=== PATIENT | female | born 1960 | race Caucasian/White ===

== ENCOUNTER → 2017-03-18 | Outpatient (CLI) | payer MEDICAID ==
--- NOTE | 2017-03-18 14:36 | XR ---
EXAMINATION TYPE: XR chest 2V DATE OF EXAM: 03/18/2017 HISTORY: C50.112 Breast CA. REFERENCE: Previous study dated 10/02/2016. FINDINGS: The lungs are clear. Pleural spaces are clear. Heart size is normal. There is hypertrophic spondylosis within the spine. IMPRESSION: NO ACTIVE INTRATHORACIC DISEASE.
== END | disposition home or self-care (01) ==
LOC: RADXRMAIN 13:34
PROVIDERS: ATTEND Internal Medicine Hematology & Oncology
DX: C50.112 Malignant neoplasm of central portion of left female breast (principal); B02.8 Zoster with other complications; M15.9 Polyosteoarthritis, unspecified; I10 Essential (primary) hypertension
CPT/HCPCS: 71020

== ENCOUNTER → 2017-05-22 | Outpatient (CLI) | payer MEDICAID ==
--- NOTE | 2017-05-23 07:18 | BD ---
EXAMINATION TYPE: MG DEXA axial skeleton. DATE OF EXAM: 05/22/2017 COMPARISON: 10.17.2014 DEXA bone scan CLINICAL HISTORY: C50.112 HX OF BREAST CANCER, Z78.0 POST MENOPAUSAL W/O HRT Height: 61 Weight: 177 FRAX RISK QUESTIONS: Alcohol (3 or more units per day): NO Family History (Parent hip fracture): NO Glucocorticoids (More than 3mos): NO (Ex: prednisone, prednisolone, methylprednisolone, dexamethasone, and hydrocortisone). History of Fracture in Adulthood: YES Secondary Osteoporosis: NO 1. Type 1 Diabetes: YES 2. Hyperthyroidism: NO 3. Menopause before 45: YES 4. Malnutrition: NO 5. 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 Bone mineral density as measured about the Lumbar spine is: ----- L1-L4(G/cm2): 1.464 T Score Values are as follows: ----- L1: 3.3 ----- L2: 2.6 ----- L3: 2.4 ----- L4: 1.3 ----- L1-L4: 2.4 Bone mineral density has: Increased 4.2% since study of: 10.17.2014 Bone mineral density about the R hip (g/cm2): 1.018 Bone mineral density about the L hip (g/cm2): 1.003 T Score values are as follows: -----R Neck: -0.7 -----L Neck: -0.8 -----R Total: 0.1 -----L Total: 0.0 Bone mineral density has: Decreased -0.1% since study of: 10.17.2014 FRAX%'S: THERE IS A 10.5% CHANCE OF A MAJOR OSTEOPOROTIC FX AND A 0.5% CHANCE OF HIP FX... PROBAB ILITY IN 10 YRS TIME IMPRESSION: Normal (Values between +1 and -1 indicate normal bone mass). Consider repeating this study in 5 year s or sooner if there is some new clinical indication FOR BOTH OF HER HIPS AND HER LUMBAR SPINE. NOTE: T-SCORE=SD OF THE YOUNG ADULT MEAN.
== END | disposition home or self-care (01) ==
LOC: RADBDWWP 16:17
PROVIDERS: ATTEND Internal Medicine Hematology & Oncology
DX: C50.112 Malignant neoplasm of central portion of left female breast (principal); N95.1 Menopausal and female climacteric states; Z78.0 Asymptomatic menopausal state
CPT/HCPCS: 77080

== ENCOUNTER 2017-06-12 01:47 | Emergency (ER) | payer MEDICAID ==
[2017-06-12 02:03] VITALS: RESP 16
[2017-06-12] MEDS ORDERED: SODIUM CHLORIDE 0.9% 500 ML IV STA (02:14)
[2017-06-12] MEDS ORDERED: KETOROLAC 60 MG/2 ML VIAL IVP STA (02:15)
[2017-06-12] MEDS ORDERED: ACETAMINOPHEN TAB 500 MG TAB PO STA (02:17)
--- NOTE | 2017-06-12 02:17 | ED ---
General Adult HPI - General Chief complaint: Abdominal Pain Stated complaint: sharp left side pain Time Seen by Provider: 06/12/17 02:00 Source: patient, RN notes reviewed Mode of arrival: ambulatory Limitations: no limitations - History of Present Illness Initial comments: This is a 57-year-old female presents emergency Department complaining about sudden onset of left CVA tenderness. Patient states she also has had a difficult time urinating since then. Patient states there is a little bit of urgency. Patient denies any dysuria. Patient denies any fever chills. Patient states tapping her back in the kidney area hurts significantly. Patient denies any abdominal pain patient denies any nausea or vomiting. Patient denies any chest pain palpitations or difficulty bleeding. Patient denies any vaginal bleeding or discharge. Patient denies any recent injury or trauma. Patient denies a history of kidney stones - Related Data Home Medications Medication Instructions Recorded Confirmed Letrozole [Femara] 2.5 mg PO DAILY 03/03/14 12/19/15 Previous Rx's Medication Instructions Recorded Hydrocodone/Acetaminophen [Pinole 1 each PO Q4HR PRN #20 tab 06/12/17 5-325] Ketorolac [Toradol] 10 mg PO Q6HR #15 tab 06/12/17 Tamsulosin HCl [Flomax] 0.4 mg PO DAILY #7 cap 06/12/17 Allergies Allergy/AdvReac Type Severity Reaction Status Date / Time adhesive tape Allergy DERMATITIS; Verified 12/19/15 07:25 PAPER TAPE OK Penicillins AdvReac Unknown Verified 12/19/15 07:25 Review of Systems ROS Statement: Those systems with pertinent positive or pertinent negative responses have been documented in the HPI. ROS Other: All systems not noted in ROS Statement are negative. Past Medical History Past Medical History: Cancer, Diabetes Mellitus, GERD/Reflux Additional Past Medical History / Comment(s): LMP 2006. Breast Cancer 2006. LAP BAND. OCC GERD. DIET-CONTROLLED DM. History of Any Multi-Drug Resistant Organisms: None Reported Past Surgical History: Breast Surgery, Orthopedic Surgery Additional Past Surgical History / Comment(s): Left Mastectomy W/ RECONSTRUCTION. Right Breast REDUCTION W/ Implant, Lap band 2001. Abdominoplasty. [facility] Past Anesthesia/Blood Transfusion Reactions: Postoperative Nausea & Vomiting ( PONV) Additional Past Anesthesia/Blood Transfusion Reaction / Comment(s): SEVERE PONV. Past Psychological History: No Psychological Hx Reported Smoking Status: Former smoker - Past Family History Mother Sister(s) Family Medical History: Cancer Additional Family Medical History / Comment(s): MOTHER, SISTER - PRE-CA BREAST. SISTER - SKIN CA. Father Family Medical History: Cancer General Exam - General Exam Comments Initial Comments: GENERAL: Patient is well-developed and well-nourished. Patient is nontoxic and well- hydrated and is in moderate distress. ENT: Neck is soft and supple. No significant lymphadenopathy is noted. Oropharynx is clear. Moist mucous membranes. Neck has full range of motion without eliciting any pain. EYES: The sclera were anicteric and conjunctiva were pink and moist. Extraocular movements were intact and pupils were equal round and reactive to light. Eyelids were unremarkable. PULMONARY: Unlabored respirations. Good breath sounds bilaterally. No audible rales rhonchi or wheezing was noted. CARDIOVASCULAR: There is a regular rate and rhythm without any murmurs gallops or rubs. ABDOMEN: Soft and nontender with normal bowel sounds. No palpable organomegaly was noted. There is no palpable pulsatile mass. SKIN: Skin is clear with no lesions or rashes and otherwise unremarkable. NEUROLOGIC: Patient is alert and oriented x3. Cranial nerves II through XII are grossly intact. Motor and sensory are also intact. Normal speech, volume and content. Symmetrical smile. MUSCULOSKELETAL: Normal extremities with adequate strength and full range of motion. Patient has significant left CVA tenderness LYMPHATICS: No significant lymphadenopathy is noted PSYCHIATRIC: Normal psychiatric evaluation. Normal interpersonal interactions appears functionally intact in deals appropriately with others. No signs of depression. No signs of anxiety. Limitations: no limitations Course Vital Signs 06/12/17 02:00 Temperature 100.2 F H Pulse Rate 73 Respiratory 16 Rate Blood Pressure 134/79 O2 Sat by Pulse 100 Oximetry Medical Decision Making - Medical Decision Making Computed tomography scan shows a kidney stone in the left ureter at the UVJ junction. Patient has some hydroureter little bit of hydronephrosis. - Lab Data Result diagrams: 06/12/17 03:00 06/12/17 03:00 Lab Results 06/12/17 06/12/17 06/12/17 Range/Units 03:00 03:00 03:00 WBC 13.8 H (3.8-10.6) k/uL RBC 4.64 (3.80-5.40) m/uL Hgb 13.9 (11.4-16.0) gm/dL Hct 40.3 (34.0-46.0) % MCV 86.9 (80.0-100.0) fL MCH 29.9 (25.0-35.0) pg MCHC 34.4 (31.0-37.0) g/dL RDW 13.1 (11.5-15.5) % Plt Count 280 (150-450) k/uL Neutrophils % 87 % Lymphocytes % 9 % Monocytes % 3 % Eosinophils % 0 % Basophils % 0 % Neutrophils # 12.0 H (1.3-7.7) k/uL Lymphocytes # 1.2 (1.0-4.8) k/uL Monocytes # 0.5 (0-1.0) k/uL Eosinophils # 0.0 (0-0.7) k/uL Basophils # 0.0 (0-0.2) k/uL Sodium 137 (137-145) mmol/L Potassium 4.6 (3.5-5.1) mmol/L Chloride 109 H (98-107) mmol/L Carbon Dioxide 17 L (22-30) mmol/L Anion Gap 11 mmol/L BUN 17 (7-17) mg/dL Creatinine 0.90 (0.52-1.04) mg/dL Est GFR (MDRD) Af Amer >60 (>60 ml/min/1.73 sqM) Est GFR (MDRD) Non-Af >60 (>60 ml/min/1.73 sqM) Glucose 121 H (74-99) mg/dL Calcium 9.5 (8.4-10.2) mg/dL Total Bilirubin 0.5 (0.2-1.3) mg/dL AST 26 (14-36) U/L ALT 23 (9-52) U/L Alkaline Phosphatase 84 (38-126) U/L Total Protein 6.9 (6.3-8.2) g/dL Albumin 4.2 (3.5-5.0) g/dL Amylase 53 (30-110) U/L Lipase 85 (23-300) U/L Urine Color Yellow Urine Appearance Clear (Clear) Urine pH 6.0 (5.0-8.0) Ur Specific [place] 1.026 (1.001-1.035) Urine Protein Trace H (Negative) Urine Glucose (UA) Negative (Negative) Urine Ketones Negative (Negative) Urine Blood Moderate H (Negative) Urine Nitrite Negative (Negative) Urine Bilirubin Negative (Negative) Urine Urobilinogen 2.0 (<2.0) mg/dL Ur Leukocyte Esterase Negative (Negative) Urine RBC 114 H (0-5) /hpf Urine WBC 1 (0-5) /hpf Ur Squamous Epith Cells <1 (0-4) /hpf Hyaline Casts 1 (0-2) /lpf Urine Mucus Rare H (None) /hpf Disposition Clinical Impression: Kidney stone on left side Disposition: HOME SELF-CARE Instructions: Kidney Stones (ED) Prescriptions: Hydrocodone/Acetaminophen [Pinole 5-325] 1 each PO Q4HR PRN #20 tab PRN Reason: Pain Ketorolac [Toradol] 10 mg PO Q6HR #15 tab Tamsulosin HCl [Flomax] 0.4 mg PO DAILY #7 cap Referrals: Jimmie Serra MD [Primary Care Provider] - 1-2 days Time of Disposition: 03:45
[2017-06-12 03:12] LABS: Basophils % (A) 0 %; CH 29.4; Eosinophils % (A) 0 %; HCT 40.3 % (34.0-46.0); HDW 2.63; HGB 13.9 gm/dL (11.4-16.0); Luc # (Auto) 0.11; Luc % (Auto) 1; Lymphocytes # (A) 1.2 k/uL (1.0-4.8); Lymphocytes % (A) 9 %; MCH 29.9 pg (25.0-35.0); MCHC 34.4 g/dL (31.0-37.0); MCV 86.9 fL (80.0-100.0); Mean Platelet Volume 7.1; Monocytes # (A) 0.5 k/uL (0-1.0); Monocytes % (A) 3 %; Neutrophils % (A) 87 %; RBC 4.64 m/uL (3.80-5.40); RDW 13.1 % (11.5-15.5); WBC 13.8 k/uL (3.8-10.6); WBC (Perox) 13.69
[2017-06-12 03:14] LABS: Appearance,Urine Clear (Clear); Bilirubin,Urine Negative (Negative); Glucose,Urine (UA) Negative (Negative); Ketones,Urine Negative (Negative); Leukocyte Esterase,Urine Negative (Negative); Mucus,Urine Rare /hpf; Nitrite,Urine Negative (Negative); Particle Count 2931; Protein,Urine Trace (Negative); RBC,Urine 114 /hpf (0-5); Specific Gravity,Urine 1.026 (1.001-1.035); Squamous Epithelial Cell,Urine <1 /hpf (0-4); UA Billing (MACRO vs. MICRO) MICRO; WBC,Urine 1 /hpf (0-5)
[2017-06-12 03:24] LABS: ALT 23 U/L (9-52); AST 26 U/L (14-36); Alkaline Phosphatase 84 U/L (38-126); Amylase 53 U/L (30-110); Anion Gap 11 mmol/L; Blood Urea Nitrogen 17 mg/dL (7-17); Calcium 9.5 mg/dL (8.4-10.2); Carbon Dioxide 17 mmol/L (22-30); Chloride 109 mmol/L (98-107); Glucose 121 mg/dL (74-99); Non-African American GFR(MDRD) >60 (>60 ml/min/1.73 sqM); Potassium 4.6 mmol/L (3.5-5.1); Sodium 137 mmol/L (137-145); Total Bilirubin 0.5 mg/dL (0.2-1.3); Total Protein 6.9 g/dL (6.3-8.2)
[2017-06-12] MEDS ORDERED: HYDROmorphone 1 MG/ML 1 ML SYRINGE IVP STA (04:05)
[2017-06-12] MEDS ORDERED: ONDANSETRON 4 MG/2 ML VIAL IVP STA (04:06)
--- NOTE | 2017-06-12 04:38 | CT ---
EXAM: CT Abdomen and Pelvis Without Intravenous Contrast CLINICAL HISTORY: Reason: Pain TECHNIQUE: Axial computed tomography images of the abdomen and pelvis without intravenous contrast. CTDI is 9.20 mGy and DLP is 427.90 mGy-cm. This CT exam was performed using one or more of the following dose reduction techniques: automated exposure control, adjustment of the mA and/or kV according to patient size, and/or use of iterative reconstruction technique. COMPARISON: CT abdomen-pelvis 03/03/2014 FINDINGS: Lower thorax: Lung bases are clear. Partially imaged left breast implant. Postoperative changes of gastric lap band identified about region of gastric cardia. There is moderate distal esophageal distention with air-fluid level in the distal esophagus which may reflect stasis and delayed clearing. ABDOMEN: Liver: Mild hepatomegaly. Liver is otherwise unremarkable. Gallbladder and bile ducts: Unremarkable. No calcified stones. Pancreas: Pancreas is unremarkable No ductal dilation. Spleen: Spleen is unremarkable Adrenals: No adrenal masses Kidneys and ureters: Mild left perinephric stranding with mild left hydronephrosis and hydroureter. Findings suggesting small approximately 3 mm distal left ureteral calculus identified just above level of the left ureterovesical junction. No evidence of right renal calculi or hydronephrosis. Stomach and bowel: No evidence of bowel obstruction or pneumoperitoneum. Normal-appearing appendix identified. No evidence of appendicitis. Colonic diverticulosis. Minimal pericolonic stranding identified about region of splenic flexure and distal descending colon likely related to chronic postinflammatory changes as these areas were involved with diverticulitis on prior study of 03/03/2014. No definite evidence of acute diverticulitis although colonic evaluation is somewhat limited due to incomplete colonic distention. Appendix: See above. PELVIS: Bladder: Urinary bladder is nondistended but otherwise unremarkable. No bladder calculi identified. Reproductive: Unremarkable as visualized. ABDOMEN and PELVIS: Intraperitoneal space: No abnormal fluid collections or free fluid. Bones/joints: Degenerative changes involving the lower thoracic and lumbar spine. Soft tissues: Unremarkable. Vasculature: No abdominal aortic aneurysm. Lymph nodes: No enlarged lymph nodes. IMPRESSION: Mild left perinephric stranding with mild left hydronephrosis and hydroureter with findings suggesting small approximately 3 mm distal left ureteral calculus just above level of the left ureterovesical junction. Colonic diverticulosis. No definite evidence of acute diverticulitis. Postsurgical changes of gastric lap band with moderate distention of distal esophagus as discussed in body of report.
[2017-06-12 04:52] VITALS: BP 108/70; PULSE 68; TEMP 98.2
== END 2017-06-12 04:49 | disposition home or self-care (01) ==
LOC: EC 01:47
DX: N20.0 Calculus of kidney (principal); Z85.3 Personal history of malignant neoplasm of breast; Z87.891 Personal history of nicotine dependence; Z79.899 Other long term (current) drug therapy; Z88.0 Allergy status to penicillin; Z91.09 Other allergy status, other than to drugs and biological substances
CPT/HCPCS: 36415; 80053; 82150; 83690; 85025; 81001; 74176; 99284; 96374; 96375 ×2; 96361 ×2; J2405; J1885; J1170

== ENCOUNTER 2017-11-21 23:31 | Emergency (ER) | payer MEDICAID ==
[2017-11-21] MEDS ORDERED: ACETAMINOPHEN TAB 500 MG TAB PO STA (23:48)
[2017-11-21] MEDS ORDERED: IBUPROFEN 600 MG TAB PO STA (23:48)
[2017-11-22] MEDS ORDERED: IPRATROPIUM-ALBUTEROL 3 ML NEB INHALATION STA (00:11)
[2017-11-22] MEDS ORDERED: SODIUM CHLORIDE 0.9% 1,000 ML IV STA ×2 (00:11)
[2017-11-22] MEDS ORDERED: methylPREDNISolone SOD SUCCI 125 MG/2 ML VIAL IV STA (00:11)
[2017-11-22] MEDS ORDERED: PROMETHAZ-COD 6.25-10 MG/5 ML 5 ML CUP PO STA (00:14)
--- NOTE | 2017-11-22 00:31 | ED ---
URI HPI - General Chief Complaint: Upper Respiratory Infection Stated Complaint: Cough Time Seen by Provider: 11/21/17 23:41 Source: patient, RN notes reviewed, old records reviewed Mode of arrival: ambulatory Limitations: no limitations - History of Present Illness Initial Comments: This patient is a 57 year old female with one week of cough, congestion, and low grade fever. Patient reports she called her PCP and was started on steriod dose pack today. She states she was coughing too hard that she vomitied and couldnt catch her breath, so she came to the ED. She states that she was recently on Biaxin for sinus infection. Denies any abdominal pain, chest pain, headache, changes in urination and bowlel habits. She denies any numbness or tingling, headache, sore throat or sinus pressure. She is a non smoker - Related Data Home Medications Medication Instructions Recorded Confirmed Acetaminophen [Tylenol Extra 500 mg PO BID PRN 11/21/17 11/21/17 Strength] Albuterol Inhaler [Ventolin Hfa 2 puff INHALATION RT-Q6H PRN 11/21/17 11/21/17 Inhaler] Promethazine/Dextromethorphan 5 ml PO BID PRN 11/21/17 11/21/17 [Promethazine-Dm Syrup] methylPREDNISolone Dose Pack See Taper PO DIRECTED 11/21/17 11/21/17 [Medrol Dose Pack] Previous Rx's Medication Instructions Recorded Albuterol Inhaler [Ventolin Hfa 1 - 2 puff INHALATION Q6HR PRN #1 11/22/17 Inhaler] inhaler Levofloxacin [Levaquin] 750 mg PO DAILY #5 tab 11/22/17 Ondansetron Odt [Zofran Odt] 4 mg PO Q12HR PRN #12 tab 11/22/17 Promethaz-Cod 6.25-10 mg/5 ml 5 ml PO Q4HR PRN #120 ml 11/22/17 [Phenergan with Codeine] Allergies Allergy/AdvReac Type Severity Reaction Status Date / Time adhesive tape Allergy DERMATITIS; Verified 11/21/17 23:45 PAPER TAPE OK Penicillins Allergy Anaphylaxis Verified 11/21/17 23:45 Review of Systems ROS Statement: Those systems with pertinent positive or pertinent negative responses have been documented in the HPI. ROS Other: All systems not noted in ROS Statement are negative. Past Medical History Past Medical History: Cancer, Diabetes Mellitus, GERD/Reflux Additional Past Medical History / Comment(s): LMP 2006. Breast Cancer 2006. LAP BAND. OCC GERD. DIET-CONTROLLED DM. History of Any Multi-Drug Resistant Organisms: None Reported Past Surgical History: Breast Surgery, Orthopedic Surgery Additional Past Surgical History / Comment(s): Left Mastectomy W/ RECONSTRUCTION. Right Breast REDUCTION W/ Implant, Lap band 2001. Abdominoplasty. [facility] Past Anesthesia/Blood Transfusion Reactions: Postoperative Nausea & Vomiting ( PONV) Additional Past Anesthesia/Blood Transfusion Reaction / Comment(s): SEVERE PONV. Past Psychological History: No Psychological Hx Reported Smoking Status: Former smoker Past Alcohol Use History: Rare Past Drug Use History: None Reported - Past Family History Mother Sister(s) Family Medical History: Cancer Additional Family Medical History / Comment(s): MOTHER, SISTER - PRE-CA BREAST. SISTER - SKIN CA. Father Family Medical History: Cancer General Exam - General Exam Comments Initial Comments: This is a 57 year old female, no distress. Limitations: no limitations General appearance: alert, in no apparent distress Head exam: Present: atraumatic, normocephalic, normal inspection Eye exam: Present: normal appearance, PERRL, EOMI. Absent: scleral icterus, conjunctival injection, periorbital swelling ENT exam: Present: normal exam, mucous membranes moist Neck exam: Present: normal inspection. Absent: tenderness, meningismus, lymphadenopathy Respiratory exam: Present: wheezes, rhonchi. Absent: normal lung sounds bilaterally, respiratory distress, rales, stridor Cardiovascular Exam: Present: regular rate, normal rhythm, normal heart sounds. Absent: systolic murmur, diastolic murmur, rubs, gallop, clicks GI/Abdominal exam: Present: soft, normal bowel sounds. Absent: distended, tenderness, guarding, rebound, rigid Extremities exam: Present: normal inspection, full ROM, normal capillary refill. Absent: tenderness, pedal edema, joint swelling, calf tenderness Back exam: Present: normal inspection Neurological exam: Present: alert, oriented X3, CN II-XII intact Psychiatric exam: Present: normal affect, normal mood Skin exam: Present: warm, dry, intact, normal color. Absent: rash Course Vital Signs 11/21/17 11/22/17 11/22/17 23:34 00:21 00:30 Temperature 100.3 F H Pulse Rate 91 75 76 Respiratory 20 16 16 Rate Blood Pressure 141/80 O2 Sat by Pulse 95 Oximetry 11/22/17 11/22/17 01:38 03:03 Temperature 98.4 F 97.7 F Pulse Rate 84 67 Respiratory 16 18 Rate Blood Pressure 147/80 130/57 O2 Sat by Pulse 96 98 Oximetry Medical Decision Making - Medical Decision Making This patient is a 57 year old female with cough congestion for oen week. Started on steriods by PCP today. She arrives with significant wheezing and rhonchi. She was given duoneb treatment, cough syrup, and IV fluids. Paitent CXR was reviewed to be normal. She has resolution of wheezing and rhonchi. Lab work was reviewed and within normal limitis. EKG was reviewed, no significant changes. Patient informed of these results. She does have significant bronchitis. Will discharge patient with cough syrup, levaquin, inhaler. Disucssed follow up with PCP on Friday and return if worsening signs or symptoms occur. - Lab Data Result diagrams: 11/22/17 00:48 11/22/17 00:48 Lab Results 11/21/17 11/22/17 11/22/17 Range/Units 23:45 00:48 00:48 WBC 7.6 (3.8-10.6) k/uL RBC 4.76 (3.80-5.40) m/uL Hgb 13.4 (11.4-16.0) gm/dL Hct 42.1 (34.0-46.0) % MCV 88.5 (80.0-100.0) fL MCH 28.2 (25.0-35.0) pg MCHC 31.8 (31.0-37.0) g/dL RDW 12.8 (11.5-15.5) % Plt Count 247 (150-450) k/uL Neutrophils % 84 % Lymphocytes % 13 % Monocytes % 2 % Eosinophils % 0 % Basophils % 0 % Neutrophils # 6.4 (1.3-7.7) k/uL Lymphocytes # 1.0 (1.0-4.8) k/uL Monocytes # 0.1 (0-1.0) k/uL Eosinophils # 0.0 (0-0.7) k/uL Basophils # 0.0 (0-0.2) k/uL PT (9.0-12.0) sec INR (<1.2) APTT (22.0-30.0) sec Sodium (137-145) mmol/L Potassium (3.5-5.1) mmol/L Chloride (98-107) mmol/L Carbon Dioxide (22-30) mmol/L Anion Gap mmol/L BUN (7-17) mg/dL Creatinine (0.52-1.04) mg/dL Est GFR (MDRD) Af Amer (>60 ml/min/1.73 sqM) Est GFR (MDRD) Non-Af (>60 ml/min/1.73 sqM) Glucose (74-99) mg/dL Plasma Lactic Acid Moose (0.7-2.0) mmol/L Calcium (8.4-10.2) mg/dL Total Bilirubin (0.2-1.3) mg/dL AST (14-36) U/L ALT (9-52) U/L Alkaline Phosphatase (38-126) U/L Total Creatine Kinase 138 H (30-135) U/L CK-MB (CK-2) 0.8 (0.0-2.4) ng/mL CK-MB (CK-2) Rel Index 0.6 Troponin I <0.012 (0.000-0.034) ng/mL Total Protein (6.3-8.2) g/dL Albumin (3.5-5.0) g/dL Influenza Type A RNA Not Detected (Not Detectd) Influenza Type B (PCR) Not Detected (Not Detectd) 11/22/17 11/22/17 11/22/17 Range/Units 00:48 00:48 00:48 WBC (3.8-10.6) k/uL RBC (3.80-5.40) m/uL Hgb (11.4-16.0) gm/dL Hct (34.0-46.0) % MCV (80.0-100.0) fL MCH (25.0-35.0) pg MCHC (31.0-37.0) g/dL RDW (11.5-15.5) % Plt Count (150-450) k/uL Neutrophils % % Lymphocytes % % Monocytes % % Eosinophils % % Basophils % % Neutrophils # (1.3-7.7) k/uL Lymphocytes # (1.0-4.8) k/uL Monocytes # (0-1.0) k/uL Eosinophils # (0-0.7) k/uL Basophils # (0-0.2) k/uL PT 10.0 (9.0-12.0) sec INR 1.0 (<1.2) APTT 22.6 (22.0-30.0) sec Sodium 138 (137-145) mmol/L Potassium 4.4 (3.5-5.1) mmol/L Chloride 102 (98-107) mmol/L Carbon Dioxide 25 (22-30) mmol/L Anion Gap 11 mmol/L BUN 13 (7-17) mg/dL Creatinine 0.70 (0.52-1.04) mg/dL Est GFR (MDRD) Af Amer >60 (>60 ml/min/1.73 sqM) Est GFR (MDRD) Non-Af >60 (>60 ml/min/1.73 sqM) Glucose 200 H (74-99) mg/dL Plasma Lactic Acid Moose 2.0 (0.7-2.0) mmol/L Calcium 9.8 (8.4-10.2) mg/dL Total Bilirubin 0.2 (0.2-1.3) mg/dL AST 27 (14-36) U/L ALT 25 (9-52) U/L Alkaline Phosphatase 98 (38-126) U/L Total Creatine Kinase (30-135) U/L CK-MB (CK-2) (0.0-2.4) ng/mL CK-MB (CK-2) Rel Index Troponin I (0.000-0.034) ng/mL Total Protein 7.1 (6.3-8.2) g/dL Albumin 4.3 (3.5-5.0) g/dL Influenza Type A RNA (Not Detectd) Influenza Type B (PCR) (Not Detectd) 11/22/17 02:19 EKG shows normal sinus rhythm, biatrial enlargement. Low voltage QRS. No specific T wave abnormality. Abnormal EKG noted. Ventricular rate of 70 bpm, GA interval 142 ms. QRS duration 90 ms. QT QTc is 398/429 ms. - Radiology Data Radiology results: report reviewed CXR reviewed and normal. Disposition Clinical Impression: Bronchitis Disposition: HOME SELF-CARE Condition: Good Instructions: Acute Bronchitis (ED) Additional Instructions: Patient advised to use the medications as directed. Follow-up with primary care provider on Friday. Return to the emergency department if any alarming signs or symptoms occur. Prescriptions: Albuterol Inhaler [Ventolin Hfa Inhaler] 1 - 2 puff INHALATION Q6HR PRN #1 inhaler PRN Reason: Cough Levofloxacin [Levaquin] 750 mg PO DAILY #5 tab Ondansetron Odt [Zofran Odt] 4 mg PO Q12HR PRN #12 tab PRN Reason: Nausea Promethaz-Cod 6.25-10 mg/5 ml [Phenergan with Codeine] 5 ml PO Q4HR PRN #120 ml PRN Reason: Cough Referrals: Jimmie Serra MD [Primary Care Provider] - 1-2 days Time of Disposition: 02:10
--- NOTE | 2017-11-22 01:06 | XR ---
EXAMINATION TYPE: XR chest 2V DATE OF EXAM: 11/22/2017 COMPARISON: 10/03/2017 HISTORY: Cough TECHNIQUE: Frontal and lateral views of the chest are obtained. FINDINGS: Heart and mediastinum are normal. Lungs are clear of consolidation. There is no pleural ef fusion. Bony thorax is intact. Bony vascularity is normal. IMPRESSION: No active cardiopulmonary disease. No change.
[2017-11-22 01:08] LABS: Basophils % (A) 0 %; Eosinophils % (A) 0 %; HCT 42.1 % (34.0-46.0); HGB 13.4 gm/dL (11.4-16.0); Lymphocytes % (A) 13 %; MCH 28.2 pg (25.0-35.0); MCHC 31.8 g/dL (31.0-37.0); MCV 88.5 fL (80.0-100.0); Mean Platelet Volume 7.1; Monocytes # (A) 0.1 k/uL (0-1.0); Monocytes % (A) 2 %; Neutrophils # (A) 6.4 k/uL (1.3-7.7); Neutrophils % (A) 84 %; Platelet Count 247 k/uL (150-450); RBC 4.76 m/uL (3.80-5.40); RDW 12.8 % (11.5-15.5); WBC 7.6 k/uL (3.8-10.6)
[2017-11-22 01:15] LABS: ALT 25 U/L (9-52); AST 27 U/L (14-36); Albumin 4.3 g/dL (3.5-5.0); Alkaline Phosphatase 98 U/L (38-126); Anion Gap 11 mmol/L; Blood Urea Nitrogen 13 mg/dL (7-17); Calcium 9.8 mg/dL (8.4-10.2); Carbon Dioxide 25 mmol/L (22-30); Chloride 102 mmol/L (98-107); Glucose 200 mg/dL (74-99); Potassium 4.4 mmol/L (3.5-5.1); Sodium 138 mmol/L (137-145); Total Bilirubin 0.2 mg/dL (0.2-1.3); Total Protein 7.1 g/dL (6.3-8.2)
[2017-11-22 01:20] LABS: Partial Thromboplastin Time 22.6 sec (22.0-30.0)
[2017-11-22 01:48] LABS: Creatine Kinase 138 U/L (30-135)
[2017-11-22 02:01] LABS: Creatine Kinase MB 0.8 ng/mL (0.0-2.4); Troponin I <0.012 ng/mL (0.000-0.034)
[2017-11-22] MEDS ORDERED: LEVOFLOXACIN 750MG-D5W PMX 750 MG in DEXTROSE/WATER 1 150ML.BAG IVPB STA (02:09)
[2017-11-22] MEDS ORDERED: ONDANSETRON 4 MG ODT STARTER PACK 2 TAB BTL PO STA (02:10)
[2017-11-22] MEDS ORDERED: LEVOFLOXACIN 750 MG TAB PO STA (02:43)
[2017-11-22 03:04] VITALS: BP 130/57; PULSE 67; RESP 18; TEMP 97.7
== END 2017-11-22 03:03 | disposition home or self-care (01) ==
LOC: EC 23:31
DX: J40 Bronchitis, not specified as acute or chronic (principal); Z85.3 Personal history of malignant neoplasm of breast; Z90.12 Acquired absence of left breast and nipple; Z87.891 Personal history of nicotine dependence; Z79.52 Long term (current) use of systemic steroids; Z88.0 Allergy status to penicillin; Z91.048 Other nonmedicinal substance allergy status
CPT/HCPCS: 36415; 94640; 93005; 80053; 82550; 82553; 83605; 84484; 85025; 85610; 85730; 87040; 87502; 71046; 99284; 96374; 96361 ×2; J2930; S0119

== ENCOUNTER → 2018-10-07 | Outpatient (CLI) | payer MEDICAID ==
--- NOTE | 2018-10-08 12:13 | MM ---
Reason for exam: additional evaluation requested from prior study. Last mammogram was performed 1 year ago. History: Patient is postmenopausal, has history of breast cancer at age 43, and had first child at age 36. Family history of breast cancer in mother and breast cancer in sister. Benign US right guided mammotome of the right breast, October 09, 2006. Retro-pectoral implants in both breasts, 2002. Mastectomy of the left breast, 2002. Retro-pectoral saline implants in both breasts. Excisional biopsy of the left breast. Chemotherapy. Took hormonal contraceptives for 10 years beginning at age 19. Took tamoxifen for 10 years beginning at age 44. Physical Findings: Nurse Summary: 1cm nodule in the left breast (nurse dw). MG 3D Diag Mammo Imp W/Cad RT CC, MLO, and ID view(s) were taken of the right breast. Prior study comparison: October 03, 2017, right breast MG 3d diag mammo w/cad RT. October 02, 2016, right breast MG 3d diag mammo w/cad RT. There are scattered fibroglandular densities. Implant is intact. No suspicious mass or calcifications are seen. These results were verbally communicated with the patient and result sheet given to the patient on 10/07/18. ASSESSMENT: Incomplete: need additional imaging evaluation, BI-RAD 0 RECOMMENDATION: Ultrasound. (left)
--- NOTE | 2018-10-08 12:15 | USB ---
Reason for exam: additional evaluation requested from abnormal screening. History: Patient is postmenopausal, has history of breast cancer at age 43, and had first child at age 36. Family history of breast cancer in mother and breast cancer in sister. Benign US right guided mammotome of the right breast, October 09, 2006. Retro-pectoral implants in both breasts, 2002. Mastectomy of the left breast, 2002. Retro-pectoral saline implants in both breasts. Excisional biopsy of the left breast. Chemotherapy. Took hormonal contraceptives for 10 years beginning at age 19. Took tamoxifen for 10 years beginning at age 44. US Breast Limited LT Left limited breast ultrasound including focal area of concern, retroareolar and axilla demonstrates a 1.1 x 0.6 x 0.3cm oval node at 9 o'clock. These results were verbally communicated with the patient and result sheet given to the patient on 10/07/18. ASSESSMENT: Probably benign, BI-RAD 3 RECOMMENDATION: Ultrasound of the left breast in 3 months. Manage patient on a clinical basis.
== END | disposition home or self-care (01) ==
LOC: RADMAMWWP 15:38
PROVIDERS: ATTEND Internal Medicine Hematology & Oncology
DX: Z08 Encounter for follow-up examination after completed treatment for malignant neoplasm (principal); R92.8 Other abnormal and inconclusive findings on diagnostic imaging of breast; Z85.3 Personal history of malignant neoplasm of breast
CPT/HCPCS: 77061; 77065

== ENCOUNTER → 2018-10-08 | Outpatient (CLI) | payer MEDICAID ==
--- NOTE | 2018-10-09 08:40 | XR ---
EXAMINATION TYPE: XR chest 2V DATE OF EXAM: 10/08/2018 COMPARISON: 11/22/2017 INDICATION: History of breast cancer TECHNIQUE: Frontal and lateral views of the chest are obtained. FINDINGS: The heart size is normal. The pulmonary vasculature is normal. The lungs are clear. Surgical clips in the left axillary region. Osseous structures appear unremarka ble as visualized. IMPRESSION: 1. No acute pulmonary process.
== END | disposition home or self-care (01) ==
LOC: RADXRMAIN 16:26
PROVIDERS: ATTEND Internal Medicine Hematology & Oncology
DX: C50.112 Malignant neoplasm of central portion of left female breast (principal); B02.8 Zoster with other complications; M15.9 Polyosteoarthritis, unspecified; I10 Essential (primary) hypertension
CPT/HCPCS: 71046

== ENCOUNTER → 2018-11-11 | Outpatient (CLI) | payer MEDICAID ==
--- NOTE | 2018-11-20 09:06 | BMR ---
EXAMINATION TYPE: MR breast BILAT wo/w con DATE OF EXAM: 11/18/2018 COMPARISON: 3-D right breast mammogram October 07, 2018 BI-RADS 0. Ultrasound left breast limited De 2017 BI-RADS 3 HISTORY: History of left-sided breast cancer with abnormal ultrasound, left breast nodule. History of right-sided breast implant. CONTRAST: Multiplanar, multisequence images of the breasts were acquired utilizing 9 mL intravenous Gadavist ga dolinium contrast. TECHNIQUE: A series of fat and water weighted images in the long and short axis views of both breasts are obtained in conjunction with dynamic contrast MRI with subtraction technique. Three-dimensional and additional postprocessing imaging is created on independent workstation and reviewed during offi cial interpretation of this study. FINDINGS: The right breast shows predominately fatty tissue. There is minimal background enhancement. There is subpectoral saline implant identified. No suspicious skin thickening is seen. No concerning axillary adenopathy is present. No cystic lesions or fat-containing masses are identified. Dynamic p ostcontrast images show no pathologic enhancement or suspicious enhancing masses. Left-sided mastectomy is present. There is intact silicone implant. Correlating with ultrasound and c linical history along medial aspect of implant there is a 5 mm round area of low T1 and T2 signal wit h susceptibility artifact not showing contrast enhancement seen for reference axial image 45 series 7 01 of uncertain etiology but strongly favored benign. Remainder of reconstructed left breast shows pr eservation of surrounding fat without suspicious solid or cystic mass. Surgical change towards the le ft axilla is present with distortion and clips. Asymmetric diminished size to reconstructed left neli st versus right breast is noted. IMPRESSION: No MRI evidence for invasive malignancy in either breast. BI-RADS 2 benign findings right breast. BI-RADS 2 benign findings left breast. Recommendation: Diagnostic right breast mammogram September 2019 to be back on annual schedule.
== END | disposition home or self-care (01) ==
LOC: RADMRIMAIN 20:07
PROVIDERS: ATTEND Internal Medicine Hematology & Oncology
DX: C50.112 Malignant neoplasm of central portion of left female breast (principal); N63.10 Unspecified lump in the right breast, unspecified quadrant; N63.20 Unspecified lump in the left breast, unspecified quadrant
CPT/HCPCS: 77049; C8937; A9585

== ENCOUNTER → 2019-11-02 | Outpatient (CLI) | payer MEDICAID ==
[2019-11-03 01:05] LABS: African American GFR (CKD) 92.9 (60.0-200.0); Albumin 4.6 g/dL (3.80-4.90); Albumin/Globulin Ratio 2.42 (1.60-3.17); Anion Gap 10.1 mmol/L (4.00-12.00); BUN/Creat Ratio 22.5 Ratio (12.00-20.00); Calcium 9.2 mg/dL (8.7-10.3); Carbon Dioxide 22.9 mmol/L (21.6-31.8); Globulin 1.9 g/dL (1.6-3.3); Non-African American GFR(CKD) 80.1 (60.0-200.0); Potassium 4.2 mmol/L (3.5-5.5); Total Bilirubin 0.4 mg/dL (0.3-1.2); Total Protein 6.5 g/dL (6.2-8.2)
[2019-11-03 01:58] LABS: Cancer Antigen 153 5.1 U/mL (0.0-32.3)
[2019-11-03 12:54] LABS: Zinc, Serum 64 ug/dL (60-130)
[2019-11-04 07:50] LABS: Vitamin E (Alpha Tocopherol) 1652 ug/dL (500-1800)
[2019-11-04 07:51] LABS: Vitamin A 46 ug/dL (38-106)
[2019-11-05 09:40] LABS: Vit B1(Thiamine) 76 ug/L (38-122)
== END | disposition home or self-care (01) ==
LOC: LABWHC1 16:40
PROVIDERS: ATTEND Internal Medicine Hematology & Oncology
DX: I10 Essential (primary) hypertension (principal); C50.112 Malignant neoplasm of central portion of left female breast; B02.8 Zoster with other complications; M15.9 Polyosteoarthritis, unspecified; R25.2 Cramp and spasm; Z98.84 Bariatric surgery status
CPT/HCPCS: 36415; 80053; 84425; 84446; 84590; 84630; 86300

== ENCOUNTER → 2019-11-11 | Outpatient (CLI) | payer MEDICAID ==
--- NOTE | 2019-11-12 10:48 | MM ---
Reason for exam: additional evaluation requested from prior study. Last mammogram was performed 1 year and 1 month ago. History: Patient is postmenopausal, has history of breast cancer at age 43, and had first child at age 36. Family history of breast cancer in mother at age 44 and breast cancer in sister at age 44. Benign US right guided mammotome of the right breast, October 09, 2006. Retro-pectoral implants in both breasts, 2002. Mastectomy of the left breast, 2002. Retro-pectoral saline implants in both breasts. Excisional biopsy of the left breast. Chemotherapy. Took hormonal contraceptives for 10 years beginning at age 19. Took tamoxifen for 10 years beginning at age 44. Physical Findings: Nurse Summary: 1cm nodule in the left breast medial chest wall (nurse mj). MG 3D Diag Mammo Imp W/Cad RT CC, MLO, and ID view(s) were taken of the right breast. Prior study comparison: October 07, 2018, right breast MG 3d diag mammo imp w/cad RT. October 03, 2017, right breast MG 3d diag mammo w/cad RT. There are scattered fibroglandular densities. No suspicious abnormality. Right biopsy marker noted. Right retroareolar saline implant. No significant new findings when compared with previous films. These results were verbally communicated with the patient and result sheet given to the patient on 11/11/19. ASSESSMENT: Benign, BI-RAD 2 RECOMMENDATION: Follow-up diagnostic mammogram of the right breast in 1 year.
--- NOTE | 2019-11-12 10:51 | USB ---
Reason for exam: additional evaluation requested from prior study. History: Patient is postmenopausal, has history of breast cancer at age 43, and had first child at age 36. Family history of breast cancer in mother at age 44 and breast cancer in sister at age 44. Benign US right guided mammotome of the right breast, October 09, 2006. Retro-pectoral implants in both breasts, 2002. Mastectomy of the left breast, 2002. Retro-pectoral saline implants in both breasts. Excisional biopsy of the left breast. Chemotherapy. Took hormonal contraceptives for 10 years beginning at age 19. Took tamoxifen for 10 years beginning at age 44. US Breast Limited LT Left limited breast ultrasound including focal area of concern, retroareolar and axilla demonstrates a 4 x 3 x 29mm irregular, mixed lesion at 11 o'clock, some posterior enhancement, possibly heterogenous tissue on prior and a 2 x 2 x 2mm oval, cystic, benign lesion at 12 o'clock. These results were verbally communicated with the patient and result sheet given to the patient on 11/11/19. ASSESSMENT: Probably benign, BI-RAD 3 RECOMMENDATION: Breast MRI of the left breast. Recommended for surveillance, this could also evaluate 11 o'clock finding. Ultrasound of the left breast in 6 months.
== END | disposition home or self-care (01) ==
LOC: RADMAMWWP 15:15
PROVIDERS: ATTEND Internal Medicine Hematology & Oncology
DX: Z08 Encounter for follow-up examination after completed treatment for malignant neoplasm (principal); R92.8 Other abnormal and inconclusive findings on diagnostic imaging of breast
CPT/HCPCS: 77061; 77065

== ENCOUNTER → 2019-11-25 | Outpatient (CLI) | payer MEDICAID ==
--- NOTE | 2019-11-26 15:08 | BMR ---
EXAMINATION TYPE: MR breast BILAT wo/w con DATE OF EXAM: 11/25/2019 COMPARISON: Left breast ultrasound and right breast mammogram dated 11/11/2019 [facility] MRI of the breas ts dated 11/11/2018. HISTORY: Breast ca, abnormal mamm, medial lt breast TECHNIQUE: A series of fat and water weighted images in the long and short axis views of both breasts are obtained in conjunction with dynamic contrast MRI with subtraction technique. The patient was i njected with 10 mL intravenous Gadavist gadolinium contrast. Three-dimensional and additional postp rocessing imaging is created on independent workstation and reviewed during official interpretation o f this study. FINDINGS: Left mastectomy has been with reconstruction of the left silicone implant and retropectoral saline implant on the right. The right breast is composed of scattered fibroglandular tissue with mi ld background parenchymal enhancement. At the 1 o'clock position within the left breast there is a 5 x 3 mm T2 hyperintense and T1 hypointen se mass with mixed kinetics (including type III-washout). This appears on MRI as a small lymph node o n T2 axial fat sat image 39 and 40 and postcontrast series 901 image 561. This could possibly relate to the abnormality seen on the ultrasound of 11/11/2019 although labeled 11:00. Change in positioning and MRI and ultrasound could account for change in clock position. Precautionary six-month follow-up left breast ultrasound remains recommendation. Additional nonenlarged lymph nodes are seen on the lef t. No suspicious mass or nonmass enhancement is seen within the right breast. IMPRESSION: BI-RADS 2-benign findings. No MR evidence of malignancy in either breast. The sonographic 4 mm mass on the exam of 11/11/2022 to be at the 11:00 position could relate to a isa gn lymph node seen on MRI at the 12:00 position given changes in patient positioning and different mo dalities. Precautionary 6 month follow left breast ultrasound remains recommendation as discussed on the ultrasound of 11/11/2019.
== END ==
LOC: RADMRIMAIN 15:37
PROVIDERS: ATTEND Internal Medicine Hematology & Oncology
DX: C50.112 Malignant neoplasm of central portion of left female breast (principal); R92.8 Other abnormal and inconclusive findings on diagnostic imaging of breast
CPT/HCPCS: 77049; C8937; A9585

== ENCOUNTER → 2020-06-22 | Outpatient (CLI) | payer MEDICAID ==
--- NOTE | 2020-06-23 09:30 | USB ---
Reason for exam: clinical finding. History: Patient is postmenopausal, has history of breast cancer at age 43, and had first child at age 36. Family history of breast cancer in mother at age 44 and breast cancer in sister at age 44. Benign US right guided mammotome of the right breast, October 09, 2006. Retro-pectoral implants in both breasts, 2002. Mastectomy of the left breast, 2002. Retro-pectoral saline implants in both breasts. Excisional biopsy of the left breast. Chemotherapy. Took hormonal contraceptives for 10 years beginning at age 19. Took tamoxifen for 10 years beginning at age 44. Indicated problem(s): palpable abnormality in the left breast. Physical Findings: Nurse Summary: soft, movable implant, palpable lump (nurse dw). US Breast LT Left complete breast ultrasound includes all four quadrants, the retroareolar region and axilla. Finding demonstrates a 4 x 2 x 7mm cystic lesion at 11 o'clock. These results were verbally communicated with the patient and result sheet given to the patient on 06/22/20. ASSESSMENT: Benign, BI-RAD 2 RECOMMENDATION: Follow-up diagnostic mammogram in 4 months. (right breast) Back on schedule for 2020. Manage patient on a clinical basis.
== END | disposition home or self-care (01) ==
LOC: RADUSWWP 14:59
PROVIDERS: ATTEND Internal Medicine Hematology & Oncology
DX: R92.8 Other abnormal and inconclusive findings on diagnostic imaging of breast (principal); Z85.3 Personal history of malignant neoplasm of breast

== ENCOUNTER → 2020-11-15 | Outpatient (CLI) | payer MEDICAID ==
--- NOTE | 2020-11-17 09:34 | MM ---
Reason for exam: additional evaluation requested from prior study. Last mammogram was performed 1 year ago. History: Patient is postmenopausal, has history of breast cancer at age 43, and had first child at age 36. Family history of breast cancer in mother at age 44 and breast cancer in sister at age 44. Benign US right guided mammotome of the right breast, October 09, 2006. Retro-pectoral implants in both breasts, 2002. Mastectomy of the left breast, 2002. Retro-pectoral saline implants in both breasts. Excisional biopsy of the left breast. Chemotherapy. Took hormonal contraceptives for 10 years beginning at age 19. Took tamoxifen for 10 years beginning at age 44. Physical Findings: Nurse did not find any significant physical abnormalities on exam. MG 3D Diag Mammo Imp W/Cad RT CC, MLO, and ID view(s) were taken of the right breast. Prior study comparison: November 11, 2019, right breast MG 3d diag mammo imp w/cad RT. October 07, 2018, right breast MG 3d diag mammo imp w/cad RT. There are scattered fibroglandular densities. Previous mammotome biopsy in the right breast. No significant new findings when compared with previous films. These results were verbally communicated with the patient and result sheet given to the patient on 11/15/20. ASSESSMENT: Benign, BI-RAD 2 RECOMMENDATION: Routine screening mammogram of the right breast in 1 year.
== END | disposition home or self-care (01) ==
LOC: RADMAMWWP 13:37
PROVIDERS: ATTEND Internal Medicine Hematology & Oncology
DX: Z08 Encounter for follow-up examination after completed treatment for malignant neoplasm (principal); Z85.3 Personal history of malignant neoplasm of breast
CPT/HCPCS: 77061; 77065

== ENCOUNTER → 2020-12-13 | Outpatient (CLI) | payer MEDICAID ==
--- NOTE | 2020-12-13 17:31 | BD ---
EXAMINATION TYPE: Axial Bone Density DATE OF EXAM: 12/13/2020 COMPARISON: 05/22/2017 CLINICAL HISTORY: Postmenopausal screening Height: 61 Weight: 196.4 FRAX RISK QUESTIONS: Alcohol (3 or more units per day): no Family History (Parent hip fracture): no Glucocorticoids (More than 3mos): no (Ex: prednisone, prednisolone, methylprednisolone, dexamethasone, and hydrocortisone). History of Fracture in Adulthood: no Secondary Osteoporosis: 1. Type 1 Diabetes: no 2. Hyperthyroidism: no 3. Menopause before 45: yes 4. Malnutrition: no 5. Chronic liver disease: no Rheumatoid Arthritis: no Current Tobacco Use: no RISK FACTORS HISTORY OF: Surgery to Spine/Hip(right/left)/Wrist (right/left): no Family History of Osteoporosis: yes Active: no Diet low in dairy products/other sources of calcium: yes Postmenopausal woman: age 43 Lost more than 2 inches in height since high school: just 2 inches MEDICATIONS: none Additional History: pt has a lap band EXAM MEASUREMENTS: Bone mineral densitometry was performed using the [employer] System. Bone mineral density as measured about the Lumbar spine is: ----- L1-L4(G/cm2): 1.450 T Score Values are as follows: ----- L2: 2.5 ----- L3: 2.1 ----- L4: 1.2 ----- L1-L4: 2.3 Bone mineral density has: decreased -1.4 % since study of: 05.22.2017 Bone mineral density about the R hip (g/cm2): 0.922 Bone mineral density about the L hip (g/cm2): 0.954 T Score values are as follows: -----R Neck: -0.8 -----L Neck: -0.6 -----R Total: 0.2 -----L Total: 0.1 Bone mineral density has: increased 1.4 % since study of: 05.22.2017 IMPRESSION: Normal (Values between +1 and -1 indicate normal bone mass). Consider repeating this study in 5 year s or sooner if there is some new clinical indication. NOTE: T-SCORE=SD OF THE YOUNG ADULT MEAN.
== END ==
LOC: RADBDWWP 14:22
PROVIDERS: ATTEND Family Medicine
DX: Z13.820 Encounter for screening for osteoporosis (principal); Z78.0 Asymptomatic menopausal state
CPT/HCPCS: 77080

== ENCOUNTER → 2021-12-21 | Outpatient (CLI) | payer MEDICAID ==
[2021-12-21 14:41] LABS: Basophils # (A) 0.02 X 10*3/uL (0.00-0.10); Basophils % (A) 0.3 %; Eosinophils # (A) 0.16 X 10*3/uL (0.04-0.35); Eosinophils % (A) 2.6 %; HCT 40.6 % (37.2-46.3); Immature Grans, Automated 0.3 %; Lymphocytes # (A) 1.72 X 10*3/uL (0.90-5.00); Lymphocytes % (A) 27.6 %; MCH 28.8 pg (27.0-32.0); MCV 89.8 fL (80.0-97.0); Mean Platelet Volume 10.2 fL (9.5-12.2); Monocytes # (A) 0.33 X 10*3/uL (0.20-1.00); Monocytes % (A) 5.3 %; NRBC Per 100 WBC 0 /100 WBCS (0.0-0.0); Neutrophils # (A) 3.99 X 10*3/uL (1.80-7.70); Neutrophils % (A) 63.9 %; Platelet Count 261 X 10*3/uL (140-440); RBC 4.52 X 10*6/uL (4.10-5.20); RDW 13.1 % (11.5-14.5); WBC 6.24 X 10*3/uL (4.50-10.00)
[2021-12-21 18:59] LABS: % Iron Saturation 22.16 (12.00-45.00); ALT 17 U/L (8-44); AST 26 U/L (13-35); African American GFR (CKD) 91.6 (60.0-200.0); Albumin 4.2 g/dL (3.8-4.9); Alkaline Phosphatase 80 U/L (41-126); BUN/Creat Ratio 18.13 Ratio (12.00-20.00); Blood Urea Nitrogen 14.5 mg/dL (9.0-27.0); Calcium 9.6 mg/dL (8.7-10.3); Carbon Dioxide 17.1 mmol/L (20.0-27.5); Chloride 105 mmol/L (96-109); Chol/HDL Ratio 5.09 Ratio; Ferritin 66.9 ng/mL (10.0-291.0); Globulin 2.8 g/dL (1.6-3.3); Glucose 104 mg/dL (70-110); Iron 76 ug/dL (50-170); LDL Cholesterol,Calculated 175.3 mg/dL (0.0-131.0); Potassium 4.1 mmol/L (3.5-5.5); Sodium 142 mmol/L (135-145); Total Iron Binding Capacity 343 ug/dL (228-460)
[2021-12-21 21:45] LABS: Cancer Antigen 153 9.1 U/mL (0.0-32.3)
== END | disposition home or self-care (01) ==
LOC: LABWHC1 07:58
PROVIDERS: ATTEND Internal Medicine Hematology & Oncology
DX: Z00.01 Encounter for general adult medical examination with abnormal findings (principal); E78.5 Hyperlipidemia, unspecified; Z68.39 Body mass index [BMI] 39.0-39.9, adult; Z98.84 Bariatric surgery status
CPT/HCPCS: 36415; 80053; 80061; 82306; 82607; 82728; 82746; 83036; 83525; 83540; 83550; 83970; 84439; 84443; 85025; 86300

== ENCOUNTER → 2022-01-10 | Outpatient (CLI) | payer MEDICAID ==
--- NOTE | 2022-01-11 14:53 | MM ---
Reason for exam: screening (asymptomatic). Last mammogram was performed 1 year and 2 months ago. History: Patient is postmenopausal, has history of breast cancer at age 43, and had first child at age 36. Family history of breast cancer in mother at age 44 and breast cancer in sister at age 44. Benign US right guided mammotome of the right breast, October 09, 2006. Retro-pectoral implants in both breasts, 2002. Mastectomy of the left breast, 2002. Retro-pectoral saline implants in both breasts. Excisional biopsy of the left breast. Chemotherapy. Took hormonal contraceptives for 10 years beginning at age 19. Took tamoxifen for 10 years beginning at age 44. Physical Findings: A clinical breast exam by your physician is recommended on an annual basis and results should be correlated with mammographic findings. MG 3D Scr Bradley Unilateral W/Cad CC, MLO, and ID view(s) were taken of the right breast. Prior study comparison: November 15, 2020, right breast MG 3d diag mammo imp w/cad RT. November 11, 2019, right breast MG 3d diag mammo imp w/cad RT. There are scattered fibroglandular densities. Previous mammotome biopsy in the right breast. Right breast prothesis. No significant changes when compared with prior studies. ASSESSMENT: Benign, BI-RAD 2 RECOMMENDATION: Routine screening mammogram of the right breast in 1 year.
== END | disposition home or self-care (01) ==
LOC: RADMAMWWP 14:04
PROVIDERS: ATTEND Internal Medicine Hematology & Oncology
DX: Z12.31 Encounter for screening mammogram for malignant neoplasm of breast (principal)
CPT/HCPCS: 77067

== ENCOUNTER → 2022-12-25 | Outpatient (CLI) | payer MEDICAID ==
[2022-12-25 16:44] LABS: ALT 14 U/L (8-44); AST 17 U/L (13-35); African American GFR (CKD) 103.1 (60.0-200.0); Albumin 4.3 g/dL (3.8-4.9); Albumin/Globulin Ratio 1.84 (1.60-3.17); Alkaline Phosphatase 91 U/L (41-126); Amylase 53 U/L (23-121); BUN/Creat Ratio 21.64 Ratio (12.00-20.00); Blood Urea Nitrogen 15.6 mg/dL (9.0-27.0); Calcium 9.6 mg/dL (8.7-10.3); Carbon Dioxide 25.1 mmol/L (20.0-27.5); Chloride 100 mmol/L (96-109); Chol/HDL Ratio 4.69 Ratio; Globulin 2.3 g/dL (1.6-3.3); Glucose 111 mg/dL (70-110); LDL Cholesterol,Calculated 190.4 mg/dL (0.0-131.0); Lipase 39 U/L (14-63); Potassium 4.8 mmol/L (3.5-5.5); Sodium 138 mmol/L (135-145); Total Protein 6.6 g/dL (6.2-8.2)
[2022-12-25 19:23] LABS: Cancer Antigen 153 10.3 U/mL (0.0-32.3)
== END | disposition home or self-care (01) ==
LOC: LABWHC1 10:41
PROVIDERS: ATTEND Internal Medicine Hematology & Oncology
DX: Z00.01 Encounter for general adult medical examination with abnormal findings (principal); C50.112 Malignant neoplasm of central portion of left female breast; B02.8 Zoster with other complications; M15.9 Polyosteoarthritis, unspecified; I10 Essential (primary) hypertension; E55.9 Vitamin D deficiency, unspecified; E78.5 Hyperlipidemia, unspecified; D72.829 Elevated white blood cell count, unspecified; R73.01 Impaired fasting glucose; R10.11 Right upper quadrant pain
CPT/HCPCS: 36415; 80053; 80061; 82150; 82306; 83036; 83525; 83690; 84439; 84443; 85025; 86300

== ENCOUNTER → 2022-12-27 | Outpatient (CLI) | payer MEDICAID ==
[2022-12-27 18:40] LABS: Basophils # (A) 0.04 X 10*3/uL (0.00-0.10); Basophils % (A) 0.6 %; Eosinophils # (A) 0.19 X 10*3/uL (0.04-0.35); HCT 42.9 % (37.2-46.3); HGB 13.9 g/dL (12.0-15.0); Immature Grans, Automated 0.3 %; MCH 28.7 pg (27.0-32.0); MCHC 32.4 g/dL (32.0-37.0); MCV 88.6 fL (80.0-97.0); Mean Platelet Volume 10.1 fL (9.5-12.2); Monocytes % (A) 6.2 %; NRBC Per 100 WBC 0 /100 WBCS (0.0-0.0); Neutrophils # (A) 3.99 X 10*3/uL (1.80-7.70); Neutrophils % (A) 61.9 %; Platelet Count 227 X 10*3/uL (140-440); RBC 4.84 X 10*6/uL (4.10-5.20); RDW 13.3 % (11.5-14.5); WBC 6.44 X 10*3/uL (4.50-10.00)
== END | disposition home or self-care (01) ==
LOC: LABWHC1 11:50
PROVIDERS: ATTEND Family Medicine
DX: Z00.01 Encounter for general adult medical examination with abnormal findings (principal); R73.01 Impaired fasting glucose
CPT/HCPCS: 36415; 83036; 85025

== ENCOUNTER → 2023-01-13 | Outpatient (CLI) | payer MEDICAID ==
--- NOTE | 2023-01-14 09:28 | MM ---
Reason for Exam: Screening (asymptomatic). Last mammogram was performed 1 year(s) and 1 month(s) ago. Patient History: Menarche at age 13. First Full-Term at age 36. Late child-bearing (after 30). Postmenopausal. Breast cancer, left, age 43. Hormonal Contraceptives, starting at age 19 for 10 years. Tamoxifen, starting at age 44 for 10 years. 2002, Mastectomy on the Left side. Excisional Biopsy on the Left side. 10/09/2006, Benign Core Biopsy on the right side. Chemotherapy. Bilateral Implants. 2002, Bilateral Implants. Sister had breast cancer, age 44. Mother had breast cancer, age 44. Prior Study Comparison: 11/11/2019 Right Diagnostic Mammogram, [facility]. 11/15/2020 Right Diagnostic Mammogram, [facility]. 01/10/2022 Bilateral Screening Mammogram, [facility]. Tissue Density: There are scattered fibroglandular densities. Findings: Analyzed By CAD. There is no suspicious group of microcalcifications or new suspicious mass. Previous mammotome biopsy right breast. Right breast prosthesis. Overall Assessment: Benign, BI-RAD 2 Management: Screening Mammogram of the right breast in 1 year. A clinical breast exam by your physician is recommended on an annual basis and results should be correlated with mammographic findings. Electronically signed and approved by: Pedro Peñaloza D.O.
== END | disposition home or self-care (01) ==
LOC: RADMAMWWP 17:01
PROVIDERS: ATTEND Internal Medicine Hematology & Oncology
DX: Z12.31 Encounter for screening mammogram for malignant neoplasm of breast (principal); Z78.0 Asymptomatic menopausal state; Z80.3 Family history of malignant neoplasm of breast
CPT/HCPCS: 77063; 77067

== ENCOUNTER → 2023-08-18 | Outpatient (CLI) | payer MEDICAID ==
[2023-08-18 09:01] LABS: African American GFR (CKD) >90 (>60 ml/min/1.73 sqM); Blood Urea Nitrogen 20 mg/dL (7-17); Non-African American GFR(CKD) >90 (>60 ml/min/1.73 sqM)
--- NOTE | 2023-08-18 11:12 | CT ---
EXAMINATION TYPE: CT abdomen pelvis w con CT DLP: 1344.1 mGycm, Automated exposure control for dose reduction was used. DATE OF EXAM: 08/18/2023 10:29 AM COMPARISON: CT abdomen pelvis most recent from 12/24/2022. CLINICAL INDICATION:Female, 63 years old with history of R10.32 LEFT LOWER QUADRANT PAIN; diverticuli tis TECHNIQUE: Axial CT of the ;CT abdomen pelvis w con;Sagittal and coronal reformats were created on a separate workstation. Contrast used:100 mL of Isovue 300 with IV Contrast, (none if empty) Oral contrast used: with Oral Contrast (none if empty) FINDINGS: LOWER CHEST: Moderate hiatal hernia. Left breast implant is visualized. There is a flattened angle of the gastric lap band measuring 67 degrees. ABDOMEN LIVER: Unremarkable GALLBLADDER AND BILE DUCTS: Unremarkable. PANCREAS: Unremarkable. SPLEEN: Unremarkable. ADRENAL GLANDS: Unremarkable. KIDNEYS AND URETERS: No evidence of hydronephrosis or renal calculus. The ureters are unremarkable. PELVIS BLADDER: Unremarkable REPRODUCTIVE: Unremarkable. ABDOMEN & PELVIS STOMACH AND BOWEL: There are colonic diverticula present, one of which has adjacent fat stranding abby nges. No organizing fluid collection or evidence of pneumoperitoneum. No evidence of bowel obstructio n. Appendix is normal. PERITONEUM/RETROPERITONEUM: No evidence of pneumoperitoneum or free fluid. VASCULATURE: No evidence of aortic aneurysm. MUSCULOSKELETAL: No acute osseous abnormalities LYMPH NODES: No gross evidence for lymphadenopathy. SOFT TISSUE/ABDOMINAL WALL: Unremarkable IMPRESSION: 1. Acute uncomplicated left lower quadrant colonic diverticulitis. No organizing fluid collection or evidence for perforation. 2. Moderate hiatal hernia. 3. Gastric lap band with flattened angle which could represent migration of the lap band. Correlate for malfunction.
== END | disposition home or self-care (01) ==
LOC: RADCTMAIN 08:11
PROVIDERS: ATTEND Family Medicine
DX: E13.9 Other specified diabetes mellitus without complications (principal); K57.32 Diverticulitis of large intestine without perforation or abscess without bleeding; K44.9 Diaphragmatic hernia without obstruction or gangrene; K95.09 Other complications of gastric band procedure
CPT/HCPCS: 82565; 84520; 74177; 36415; Q9967

== ENCOUNTER 2023-12-09 06:03 | Day surgery (SDC) | payer MEDICAID ==
[2023-12-08 08:59] VITALS: BMI 39.6
[2023-12-09] MEDS: LACTATED RINGERS 1,000 ML IV SCH (06:21)
[2023-12-09 06:43] LABS: Glucose,Whole Blood 112 mg/dL (70-110)
[2023-12-09] MEDS ORDERED: PROPOFOL 10 MG/ML 20 ML VIAL IV ONE (06:59)
[2023-12-09] MEDS ORDERED: LIDOCAINE 1% INJ 10MG/ML (20 ML MDV) ONE (06:59)
[2023-12-09 07:02] VITALS: TEMP 98
--- NOTE | 2023-12-09 07:41 | P.PCN ---
Date of Procedure: 12/09/23 Procedure(s) Performed: Brief history: Patient is a pleasant 63-year-old white female scheduled for an elective upper endoscopy as well as colonoscopy as a part of evaluation of GERD/history of colon polyps. She is on Protonix 40 mg daily and still continues to have passive regurgitation a daily basis. She has history of lap band surgery done several years ago. Procedure performed: Esophagogastroduodenoscopy with biopsy Colonoscopy with biopsy Preoperative diagnosis: Long-standing history of GERD History of lap band surgery History of colon polyps Anesthesia: MAC Procedure: After informed consent was obtained from the patient was brought into the endoscopy unit and IV sedation was administered by anesthesia under continuous monitoring. Initially upper endoscopy was done. The Olympus GF 160 video endoscope was inserted inserted into the mouth and esophagus intubated without any difficulty and was gradually advanced into the stomach and duodenum and carefully examined. The bulb and second part of the duodenum appeared normal. The scope was then withdrawn into the stomach adequately insufflated with air and upon careful examination the antrum and body, cardia and fundus appeared normal. The scope was then withdrawn into the esophagus. Small hiatal hernia noted. Evidence of lap band surgery noted. The GE junction was located at 35 cm to the incisors. At the GE junction there was a broad-based polyp identified which was almost 3 cm in size and part of the polyp was flat and sessile polyp was polypoid in nature. Multiple biopsies were done this polyp. There were no erosions or ulcerations identified in the distal esophagus. Rest of the esophagus appeared normal. Patient tolerated the procedure well. At this time the patient continued to remain sedation. Initial digital rectal examination was normal. Olympus CF 160 video colonoscope was then inserted into the rectum and gradually advanced to the cecum without any difficulty. Careful examination was performed as the scope was gradually being withdrawn. The prep was excellent. The cecum, ascending colon, normal. In the transverse colon there was a 5 millimeters polyp that was removed by cold biopsy. Rest of the transverse colon, descending colon, sigmoid colon and rectum appeared normal. Diffuse scattered diverticulosis seen. Retroflexion was performed in the rectum and no lesions were noted. Patient tolerated the procedure well. Impression: 1. Upper endoscopy revealed a small hiatal hernia and a large 3 cm broad-based GE junction polyp part of which was flat and the risks polypoid in nature status post multiple biopsies 2. Colonoscopy revealed 5 mm transverse colon polyp status post cold biopsy and diffuse scattered diverticulosis Recommendations: Findings of this examination were discussed with the patient as well as her family. She was advised to follow with the biopsy results. He be seen in office in one week. In the meantime she'll continue on Protonix 40 mg twice daily and follow antireflux measures. Recommend repeat colonoscopy in 5 years.
[2023-12-09 08:10] LABS: Glucose,Whole Blood 99 mg/dL (70-110)
[2023-12-09 08:38] VITALS: BP 124/81; PULSE 68; RESP 20
== END 2023-12-09 08:45 ==
LOC: ORWHC2ENDO 06:03
PROVIDERS: ATTEND Internal Medicine Gastroenterology
DX: Z12.11 Encounter for screening for malignant neoplasm of colon (principal); K21.9 Gastro-esophageal reflux disease without esophagitis; K29.50 Unspecified chronic gastritis without bleeding; D12.3 Benign neoplasm of transverse colon; K44.9 Diaphragmatic hernia without obstruction or gangrene; K22.82 Esophagogastric junction polyp; Z79.899 Other long term (current) drug therapy; Z98.84 Bariatric surgery status; Z86.010 Personal history of colon polyps
CPT/HCPCS: 88305; 45380; 43239; J2001; J2704

== ENCOUNTER → 2024-01-15 | Outpatient (CLI) | payer MEDICAID ==
--- NOTE | 2024-01-15 13:06 | MM ---
Reason for Exam: Hx of breast cancer, mastectomy. Last screening mammogram was performed 12 month(s) ago. Patient History: Menarche at age 13. First Full-Term at age 36. Late child-bearing (after 30). Postmenopausal. Patient has history of breast feeding. Breast cancer, left, age 43. Hormonal Contraceptives, starting at age 19 for 10 years. Tamoxifen, starting at age 44 for 10 years. 2002, Mastectomy on the Left side. Excisional Biopsy on the Left side. 10/09/2006, Benign Core Biopsy on the right side. Chemotherapy. Bilateral Implants. 2002, Bilateral Implants. Sister had breast cancer, age 44. Mother had breast cancer, age 44. Prior Study Comparison: 10/02/2016 Right Diagnostic Mammogram, [facility]. 10/03/2017 Right Diagnostic Mammogram, [facility]. 10/07/2018 Right Diagnostic Mammogram, [facility]. 11/11/2019 Right Diagnostic Mammogram, [facility]. 11/15/2020 Right Diagnostic Mammogram, [facility]. 01/10/2022 Bilateral Screening Mammogram, [facility]. 01/13/2023 Bilateral MG 3D screening mammo w/cad, [facility]. Tissue Density: Right: There are scattered areas of fibroglandular density. Findings: Analyzed By CAD. Right breast implant is noted in place. No suspicious ossifications. No mass or distortion. Overall Assessment: Benign, BI-RAD 2 Management: Screening Mammogram of the right breast in 1 year. . Patient should continue monthly self-breast exams. A clinical breast exam by your physician is recommended on an annual basis. This exam should not preclude additional follow-up of suspicious palpable abnormalities. Note on Maria C scores and lifetime risk: 1. A Maria C score greater than 3% is considered moderate risk. If this is the case, consider specialist referral to assess eligibility for a risk reducing agent. 2. If overall lifetime risk for the development of breast cancer is 20% or higher, the patient may qualify for future screening with alternating mammogram and breast MRI. Electronically signed and approved by: Shukri Valadez M.D. Radiologis
== END | disposition home or self-care (01) ==
LOC: RADMAMWWP 10:35
PROVIDERS: ATTEND Internal Medicine Hematology & Oncology
DX: Z12.31 Encounter for screening mammogram for malignant neoplasm of breast (principal); B02.8 Zoster with other complications; N15.9 Renal tubulo-interstitial disease, unspecified; I10 Essential (primary) hypertension; Z71.3 Dietary counseling and surveillance; Z98.82 Breast implant status; Z78.0 Asymptomatic menopausal state; Z90.12 Acquired absence of left breast and nipple; Z80.3 Family history of malignant neoplasm of breast; Z85.3 Personal history of malignant neoplasm of breast
CPT/HCPCS: 77067

== ENCOUNTER → 2024-11-04 | Outpatient (CLI) | payer MEDICAID ==
[2024-11-04 15:49] LABS: Basophils # (A) 0.03 X 10*3/uL (0.00-0.10); Basophils % (A) 0.4 %; Eosinophils # (A) 0.15 X 10*3/uL (0.04-0.35); Eosinophils % (A) 2.2 %; HCT 44.1 % (37.2-46.3); HGB 14.3 g/dL (12.0-15.0); Lymphocytes # (A) 1.91 X 10*3/uL (0.90-5.00); Lymphocytes % (A) 28.4 %; MCH 28.5 pg (27.0-32.0); MCHC 32.4 g/dL (32.0-37.0); Mean Platelet Volume 10.4 FL (9.5-12.2); Monocytes # (A) 0.35 X 10*3/uL (0.20-1.00); Monocytes % (A) 5.2 %; NRBC Per 100 WBC 0 X 10*3/uL (0.00-0.01); Neutrophils # (A) 4.27 X 10*3/uL (1.80-7.70); Neutrophils % (A) 63.5 %; Platelet Count 244 X 10*3/uL (140-440); RBC 5.01 X 10*6/uL (4.10-5.20); RDW 13.3 % (11.5-14.5); WBC 6.73 X 10*3/uL (4.50-10.00)
[2024-11-04 16:17] LABS: ALT 30 U/L (8-44); AST 25 U/L (13-35); Albumin 4.5 g/dL (3.8-4.9); Alkaline Phosphatase 115 U/L (41-126); BUN/Creat Ratio 19.75 Ratio (12.00-20.00); Blood Urea Nitrogen 15.8 mg/dL (9.0-27.0); Calcium 9.6 mg/dL (8.7-10.3); Carbon Dioxide 25.5 mmol/L (21.6-31.8); Chloride 99 mmol/L (96-109); Chol/HDL Ratio 5.05 Ratio; Globulin 2.5 g/dL (1.6-3.3); Glucose 134 mg/dL (70-110); LDL Cholesterol,Calculated 211.2 mg/dL (0.0-131.0); Potassium 4.5 mmol/L (3.5-5.5); Sodium 138 mmol/L (135-145); T4, Free (Free Thyroxine) 1.11 ng/dL (0.80-1.80); Total Bilirubin 0.5 mg/dL (0.3-1.2)
== END | disposition home or self-care (01) ==
LOC: LABWHC1 09:17
PROVIDERS: ATTEND Family Medicine
DX: Z00.00 Encounter for general adult medical examination without abnormal findings (principal)
CPT/HCPCS: 36415; 80053; 80061; 82306; 83036; 84439; 84443; 85025

== ENCOUNTER → 2025-01-17 | Outpatient (CLI) | payer MEDICAID ==
--- NOTE | 2025-01-17 13:31 | MM ---
Reason for Exam: Additional evaluation requested from prior study. Last screening mammogram was performed 12 month(s) ago. Patient History: Menarche at age 13. First Full-Term at age 36. Late child-bearing (after 30). Postmenopausal. Patient has history of breast feeding. Breast cancer, left, age 43. Hormonal Contraceptives, starting at age 19 for 10 years. Tamoxifen, starting at age 44 for 10 years. 2002, Mastectomy on the Left side. Excisional Biopsy on the Left side. 10/09/2006, Benign Core Biopsy on the right side. Chemotherapy. Bilateral Implants. 2002, Bilateral Implants. Sister had breast cancer, age 44. Mother had breast cancer, age 44. Prior Study Comparison: 01/10/2022 Bilateral Screening Mammogram, [facility]. 01/13/2023 Bilateral MG 3D screening mammo w/cad, [facility]. 01/15/2024 Right MG 3D screen mammo imp/cad., [facility]. Tissue Density: Right: There are scattered areas of fibroglandular density. Findings: Analyzed By CAD. Retropectoral saline implant redemonstrated. Centrally located asymmetric density particularly on the MLO view remains unchanged. Medial microclip from prior biopsy. No significant change from prior exams. Overall Assessment: Benign, BI-RAD 2 Management: Screening Mammogram of the right breast in 1 year. Results were given to the patient verbally at the time of exam. Patient should continue monthly self-breast exams. A clinical breast exam by your physician is recommended on an annual basis. This exam should not preclude additional follow-up of suspicious palpable abnormalities. [facility], , 01/17/2025 1:28 PM. Electronically signed and approved by: Shirley Londono M.D. Radiologist
== END | disposition home or self-care (01) ==
LOC: RADMAMWWP 12:56
PROVIDERS: ATTEND Internal Medicine Hematology & Oncology
DX: C50.112 Malignant neoplasm of central portion of left female breast (principal); B02.8 Zoster with other complications; M15.9 Polyosteoarthritis, unspecified; I10 Essential (primary) hypertension; R92.321 Mammographic fibroglandular density, right breast; Z85.3 Personal history of malignant neoplasm of breast; Z78.0 Asymptomatic menopausal state; Z80.3 Family history of malignant neoplasm of breast
CPT/HCPCS: 77061; 77065

== ENCOUNTER → 2025-01-26 | Outpatient (CLI) | payer MEDICAID ==
[2025-01-26 10:32] LABS: HCT 47.3 % (37.2-46.3); HGB 15.2 g/dL (12.0-15.0); MCHC 32.1 g/dL (32.0-37.0); MCV 87.3 FL (80.0-97.0); Mean Platelet Volume 10.5 FL (9.5-12.2); NRBC Per 100 WBC 0 X 10*3/uL (0.00-0.01); Platelet Count 244 X 10*3/uL (140-440); RBC 5.42 X 10*6/uL (4.10-5.20); RDW 12.7 % (11.5-14.5); WBC 7.33 X 10*3/uL (4.50-10.00)
[2025-01-26 10:33] LABS: Basophils # (A) 0.04 X 10*3/uL (0.00-0.10); Basophils % (A) 0.5 %; Eosinophils # (A) 0.15 X 10*3/uL (0.04-0.35); Lymphocytes # (A) 2.34 X 10*3/uL (0.90-5.00); Lymphocytes % (A) 31.9 %; Monocytes # (A) 0.44 X 10*3/uL (0.20-1.00); Neutrophils # (A) 4.34 X 10*3/uL (1.80-7.70); Neutrophils % (A) 59.3 %
[2025-01-26 10:49] LABS: ALT 20 U/L (8-44); AST 23 U/L (13-35); Albumin 4.8 g/dL (3.8-4.9); Albumin/Globulin Ratio 1.66 Ratio (1.60-3.17); Alkaline Phosphatase 110 U/L (41-126); BUN/Creat Ratio 20.75 Ratio (12.00-20.00); Blood Urea Nitrogen 16.6 mg/dL (9.0-27.0); Calcium 9.8 mg/dL (8.7-10.3); Carbon Dioxide 23.4 mmol/L (21.6-31.8); Chloride 101 mmol/L (96-109); Chol/HDL Ratio 3.09 Ratio; Globulin 2.9 g/dL (1.6-3.3); Glucose 103 mg/dL (70-110); LDL Cholesterol,Calculated 86.1 mg/dL (0.0-131.0); Potassium 3.9 mmol/L (3.5-5.5); Sodium 137 mmol/L (135-145); Total Bilirubin 0.3 mg/dL (0.3-1.2); Total Protein 7.7 g/dL (6.2-8.2)
== END | disposition home or self-care (01) ==
LOC: LABWHC1 07:57
PROVIDERS: ATTEND Family Medicine
DX: E13.9 Other specified diabetes mellitus without complications (principal); E78.5 Hyperlipidemia, unspecified
CPT/HCPCS: 36415; 80053; 80061; 83036; 85025

== ENCOUNTER 2025-02-18 08:32 | Day surgery (SDC) | payer MEDICAID ==
[2025-02-16 08:31] VITALS: BMI 36.6
[2025-02-18] MEDS: IV FLUID CONTINUATION 1,000 ML IV ONE ×2 (08:55→09:22)
[2025-02-18 09:02] VITALS: RESP 16; TEMP 97.6
[2025-02-18] MEDS: LACTATED RINGERS 1,000 ML IV SCH (09:06)
[2025-02-18 09:13] LABS: Glucose,Whole Blood 97 mg/dL (70-110)
[2025-02-18] MEDS ORDERED: LIDOCAINE 1% INJ 10MG/ML (20 ML MDV) ONE (09:23)
[2025-02-18] MEDS ORDERED: PROPOFOL 10 MG/ML 20 ML VIAL IV ONE (09:23)
--- NOTE | 2025-02-18 09:35 | P.PCN ---
Date of Procedure: 02/18/25 Procedure(s) Performed: BRIEF HISTORY: Patient is a 59-year-old, pleasant, white female scheduled up endoscopy as a part of follow-up of large gastric polyp that was noted in the cardia of the stomach on routine EGD a year ago. She subsequently was referred to [facility] when she underwent repeat EGD with endoscopy mucosal resection of the polyp and the biopsy revealed hyperplastic polyp. She is scheduled for a follow-up upper endoscopy in 1 year.. PROCEDURE PERFORMED: Esophagogastroduodenoscopy with biopsy. PREOPERATIVE DIAGNOSIS: Follow-up large gastric polyp in the cardia of the stomach. IV sedation per anesthesia. PROCEDURE: After informed consent was obtained, the patient was brought into the endoscopy unit. IV sedation was administered by Anesthesia under continuous monitoring. Initially the Olympus GIF-140 video endoscope was inserted into the mouth. Esophagus intubated without any difficulty. It was gradually advanced into the stomach and duodenum and carefully examined. The bulb and the second part of the duodenum appeared normal. The scope at this time was withdrawn to the stomach, adequately insufflated with air, and upon careful examination, mucosa of the antrum, appeared normal. In the distal body there was a 5 mm polyp that was removed by cold biopsy. Rest of the body, cardia and the fundus appeared normal. Small hiatal hernia noted. The scope was then withdrawn into the esophagus. Small hiatal hernia noted. No residual polyp noted in the cardia or the GE junction. The GE junction was located at 39 cm from the incisors. The esophagus appeared normal. There were no erosions or ulcerations seen and the patient tolerated the procedure well. IMPRESSION: 1. Small hiatal hernia. 2. No residual polyp noted in the cardia of the stomach 2. Small gastric polyp in the distal body status post bile. RECOMMENDATIONS: The findings of this examination were discussed with the patient as well as her family. She was advised to follow with the biopsy results. Continue with c Protonix 40 mg daily and follow antireflux measures.. Follow-up in the office as needed.
[2025-02-18 09:56] VITALS: BP 145/82; PULSE 78
== END 2025-02-18 10:12 | disposition home or self-care (01) ==
LOC: ORWHC2ENDO 08:32
PROVIDERS: ATTEND Internal Medicine Gastroenterology
DX: K31.7 Polyp of stomach and duodenum (principal); K29.50 Unspecified chronic gastritis without bleeding; K44.9 Diaphragmatic hernia without obstruction or gangrene; K21.9 Gastro-esophageal reflux disease without esophagitis; E11.9 Type 2 diabetes mellitus without complications; E78.5 Hyperlipidemia, unspecified; Z85.3 Personal history of malignant neoplasm of breast; Z90.12 Acquired absence of left breast and nipple; Z79.85 Long-term (current) use of injectable non-insulin antidiabetic drugs; Z79.899 Other long term (current) drug therapy; Z79.51 Long term (current) use of inhaled steroids; Z90.49 Acquired absence of other specified parts of digestive tract; Z98.84 Bariatric surgery status; Z88.0 Allergy status to penicillin
CPT/HCPCS: 88305; 43239; J2003; J2704

== ENCOUNTER → 2025-05-04 | Outpatient (CLI) | payer MEDICAID ==
[2025-05-04 16:02] LABS: Basophils # (A) 0.03 X 10*3/uL (0.00-0.10); Basophils % (A) 0.4 %; Eosinophils # (A) 0.13 X 10*3/uL (0.04-0.35); Eosinophils % (A) 1.7 %; HCT 44.0 % (37.2-46.3); HGB 14.4 g/dL (12.0-15.0); Immature Grans, Automated 0.10 %; Lymphocytes # (A) 1.99 X 10*3/uL (0.90-5.00); Lymphocytes % (A) 26.2 %; MCH 28.9 pg (27.0-32.0); MCHC 32.7 g/dL (32.0-37.0); MCV 88.2 FL (80.0-97.0); Monocytes # (A) 0.44 X 10*3/uL (0.20-1.00); Monocytes % (A) 5.8 %; NRBC Per 100 WBC 0 X 10*3/uL (0.00-0.01); Neutrophils # (A) 5.00 X 10*3/uL (1.80-7.70); Neutrophils % (A) 65.8 %; Platelet Count 201 X 10*3/uL (140-440); RBC 4.99 X 10*6/uL (4.10-5.20); RDW 13.3 % (11.5-14.5); WBC 7.60 X 10*3/uL (4.50-10.00)
[2025-05-04 18:42] LABS: ALT 19 U/L (8-44); AST 27 U/L (13-35); Albumin 4.6 g/dL (3.8-4.9); Albumin/Globulin Ratio 2.09 Ratio (1.60-3.17); Alkaline Phosphatase 92 U/L (41-126); Anion Gap 13.60 mmol/L (4.00-12.00); BUN/Creat Ratio 22.78 Ratio (12.00-20.00); Blood Urea Nitrogen 20.5 mg/dL (9.0-27.0); Calcium 9.6 mg/dL (8.7-10.3); Carbon Dioxide 23.4 mmol/L (21.6-31.8); Chloride 101 mmol/L (96-109); Cholesterol 149.00 mg/dL (0.00-200.00); Globulin 2.2 g/dL (1.6-3.3); Glucose 85 mg/dL (70-110); HDL Cholesterol 46.00 mg/dL (40.00-60.00); LDL Cholesterol,Calculated 69.8 mg/dL (0.0-131.0); Potassium 3.8 mmol/L (3.5-5.5); Sodium 138 mmol/L (135-145); Total Protein 6.8 g/dL (6.2-8.2); Triglycerides 166.00 mg/dL (0.00-149.00); VLDL Calculation 33.20 mg/dL (5.00-40.00)
== END | disposition home or self-care (01) ==
LOC: LABWHC1 07:57
PROVIDERS: ATTEND Family Medicine
DX: E78.5 Hyperlipidemia, unspecified (principal); E13.9 Other specified diabetes mellitus without complications
CPT/HCPCS: 36415; 80053; 80061; 83036; 85025